=== PATIENT | male | born 1950 | race Caucasian/White ===

== ENCOUNTER 2017-02-23 11:48 | Inpatient (IN) ==
--- NOTE | 2017-02-23 10:42 | Discharge Summary ---
Date of Encounter: 02/24/17 Time of Encounter: 08:03 - Discharge Diagnosis (1) Rotator cuff tear arthropathy of right shoulder Priority: Primary Status: Acute (2) Obstructive sleep apnea Priority: Secondary Status: Chronic (3) Hypertension Priority: Secondary Status: Chronic Qualifiers: Hypertension type: unspecified secondary hypertension Qualified Code(s): I15.9 - Secondary hypertension, unspecified; I15 - Secondary hypertension (4) Coronary artery disease Priority: Secondary Status: Chronic Qualifiers: Coronary Disease-Associated Artery/Lesion type: unspecified vessel or lesion type [place] vs. transplanted heart: [place] heart Associated angina: angina presence unspecified Qualified Code(s): I25.10 - Atherosclerotic heart disease of [place] coronary artery without angina pectoris - Discharge Medications Home Medications: Aspirin 81 mg PO DAILY 11/24/16 [History] Atorvastatin [Lipitor] 40 mg PO HS 11/24/16 [History] Carvedilol 3.125 mg PO BID 11/24/16 [History] Clopidogrel [Plavix] 75 mg PO DAILY 11/24/16 [History] Fexofenadine HCl [Allergy Relief] 180 mg PO DAILY 11/24/16 [History] Folic Acid/Multivit-Min/Lutein [Centrum Silver Chewable Tablet] 1 each PO DAILY 11/24/16 [History] Hydrochlorothiazide 25 mg PO DAILY 11/24/16 [History] Isosorbide MONOnitrate (24 HR) [Imdur] 30 mg PO DAILY 11/24/16 [History] Levothyroxine [Synthroid] 88 mcg PO DAILY 11/24/16 [History] Potassium Chloride [Klor-Con 10] 10 meq PO DAILY 11/24/16 [History] OxyCODONE Immed Rel [Roxicodone 5 MG] 5 - 10 mg PO Q6HR PRN #30 tablet 02/23/17 [Rx] Allergies/Adverse Reactions: Allergies No Known Allergies Allergy (Verified 02/23/17 13:18) Primary care physician: Isaías Wu MD - Patient Status Disposition: Home, Self-Care Condition: Good Functional capacity at discharge: independent ambulation Overall status at discharge: patient is progressing back to baseline - Discharge Instructions Follow Up With: Isaías Wu MD [Primary Care Provider] - - Hospital Course Hospital course: Mr. Blanton is a 67 year old male The patient had an uneventful postoperative course. They received antibiotics and physical therapy and were discharged in stable condition. There will follow -up in the office in 2 weeks. - Time Spent with Patient Total time spent providing and/or coordinating discharge services:
[2017-02-23] MEDS ORDERED: *HR* Promethazine 25 MG/ML VIAL IVP PRN (12:17)
[2017-02-23] MEDS ORDERED: *HR* HYDROmorphone (PF) 1 MG/ML SYRINGE IVP PRN ×2 (12:17→15:15)
[2017-02-23] MEDS ORDERED: *HR* Labetalol 100 MG/20 ML MDV IVP PRN (12:17)
[2017-02-23] MEDS ORDERED: Famotidine 20 MG/2 ML VIAL IVP ONE (12:17)
--- NOTE | 2017-02-23 12:21 | Anesthesia Evaluation PreOp ---
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 Any Significant HX Other Medical History: Renal (Hx of Kidney Stones), Thyroid (maintained on Synthroid) Anesthesia History: No Prior Anesthetic Complications, Past Anesthesia (Stents, Hernia Repair, T&A, L-RCR 11/2016, Colonoscopy) Alcohol Use: none Drug use: none Medications and Allergies Aspirin 81 mg PO DAILY 11/24/16 [History] Atorvastatin [Lipitor] 40 mg PO HS 11/24/16 [History] Calcium Carbonate/Vitamin D3 [Calcium 500+D Tablet Chew] 1 each PO DAILY [History] Carvedilol 3.125 mg PO BID 11/24/16 [History] Clindamycin [Cleocin] 150 mg PO Q6HR #8 capsule 11/24/16 [Rx] Clopidogrel [Plavix] 75 mg PO DAILY 11/24/16 [History] Fexofenadine HCl [Allergy Relief] 180 mg PO DAILY 11/24/16 [History] Folic Acid/Multivit-Min/Lutein [Centrum Silver Chewable Tablet] 1 each PO DAILY 11/24/16 [History] Hydrochlorothiazide 25 mg PO DAILY 11/24/16 [History] Isosorbide MONOnitrate (24 HR) [Imdur] 30 mg PO DAILY 11/24/16 [History] Levothyroxine [Synthroid] 88 mcg PO DAILY 11/24/16 [History] Potassium Chloride [Klor-Con 10] 10 meq PO DAILY 11/24/16 [History] OxyCODONE Immed Rel [Roxicodone 5 MG] 5 - 10 mg PO Q6HR PRN #30 tablet 02/23/17 [Rx] Allergies No Known Allergies Allergy (Verified 11/24/16 12:50) - Meds/Allergy Pre-op Review Medications Reviewed: Yes Allergies Reviewed: Yes Beta Blockers on Current Med List: Yes (Carvedilol) If Beta Blockers taken, Date/Time (Last Dose taken): 02/23/2017 @ 0800 Anesthesia Results - Labs Laboratory Tests 02/11/17 02/11/17 02/11/17 07:44 07:44 07:44 WBC 7.0 Hgb 14.6 Hct 42.0 Plt Count 230 PT 12.2 H INR 1.1 APTT 32.7 Sodium 139 Potassium 3.7 Chloride 105 Carbon Dioxide 25 BUN 11 Creatinine 0.84 Est GFR (Non-Af Amer) > 60 Glucose 105 H Anesthesia Exam O2 Sat Height 1.75 m Height 1.75 m Weight 93.894 kg Weight 93.894 kg O2 Sat by Pulse Oximetry 98 Vital Signs Temp Pulse Resp BP Pulse Ox 97.7 F 65 18 143/90 98 02/23/17 12:17 02/23/17 12:17 02/23/17 12:17 02/23/17 12:17 02/23/17 12:17 Height: 5' 9 Weight: 207# BMI = 30.6 - HEENT Pupil (Motor): Pupils equal, EOMI Mallampati: II Teeth: Missing Denture Type: Upper: Partial, Lower: Partial Oral Opening: Greater than 3 - 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 LOC: Oriented 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 Silverio Gonzalez MD
--- NOTE | 2017-02-23 12:26 | History & Physical Report ---
Date of Encounter: 02/23/17 Time of Encounter: 12:26 24 Hour HP Update - Instructions Instructions: If the History and Physical is less than 30 days old and was completed prior to A.M. admission and or procedure and has NOT been updated on calendar day of procedure please complete this update prior to performing procedure. - Update Patient reports changes in Medical Condition: No Changes in examination, assessment, or condition: No Changes in Medication: No Preop tests/diagnostics Reviewed: Yes Surgery Remains Indicated: Yes Consent for Planned Operative Procedure(s) Verified: Yes - Pre-Operative Checklist Preoperative Checklist Indicated: No Prophylactic Antibiotic Ordered: Yes Is VTE Prophylaxis Indicated?: NO
[2017-02-23] MEDS ORDERED: Lidocaine -MPF 1% 2 ML VIAL ID ONE (12:56)
[2017-02-23] MEDS ORDERED: CeFAZolin Pre 2,000 MG/100 ML 2,000 MG/100 ML BAG IVPB ONE (12:56)
[2017-02-23] MEDS ORDERED: Ringers Solution, Lactated 1,000 ML IVC SCH (13:00)
[2017-02-23] MEDS ORDERED: *HR* Propofol 200 MG/20 ML VIAL IVP ONE (13:03)
[2017-02-23] MEDS ORDERED: *HR* FentaNYL (PF) 100 MCG/2 ML VIAL ONE (13:03)
[2017-02-23] MEDS ORDERED: *HR* Midazolam HCl 2 MG/2 ML VIAL ONE (13:03)
[2017-02-23] MEDS ORDERED: Bupivacaine/Clonidine Syringe 1 EACH SYRINGE ONE (13:06)
[2017-02-23] MEDS ORDERED: Tetracaine/PF 20 MG/2 ML AMPUL SPINA ONE (13:07)
--- NOTE | 2017-02-23 13:46 | Anesthesia Procedures ---
Date of Encounter: 02/23/17 Time of Encounter: 13:44 Procedures: Anesthesia - Nerve Block Procedure Date: 02/23/17 Time: 13:44 Allergies/Adv Reactions: [id number] Pre-op Diagnosis: OA rt Shoulder Surgical Procedure: RT Total Shoulder Checklist: Correct Patient Identifier Correct side: Right Blood Thinner: No Monitor Applied: EKG, BP, Pulse Oximetry Supplemental Oxygen via Nasal Cannula (L/min): 3 Sedation: Versed (mg): 2 Sedation: Fentanyl (mcg): 100 Indication: Post Op Analgesia (per Dr Reji Munoz) Pre-op Neuro Deficits: No Block Type: Supraclavicular Catheter placed: No Sterile Technique: Yes Ultrasound used: Yes Anatomy identified: Yes Visual spread of Local: Yes Neuro Stimulation: No Blood on Needle Aspiration: No Smooth Injection of Local: Yes Pain with Injection of Local: No Prep: Chlorhexadine Needle: 22 x 50 mm Stimuplex Local: 0.25% Bupivicaine w/Clonidine 20 mcg/cc, Tetracaine Volume (cc): 40 Number of Attempts: 1 Complications: None/effective block Vitals: 140/80, 76, 16 98%
[2017-02-23] MEDS ORDERED: Ondansetron 4 MG/2 ML VIAL ONE (13:49)
[2017-02-23] MEDS ORDERED: Lidocaine -MPF 2% 2 ML VIAL ONE (13:49)
[2017-02-23] MEDS ORDERED: Dexamethasone 4 MG/ML VIAL ONE (13:49)
--- NOTE | 2017-02-23 14:20 | Orthopedic Operative Note ---
Date of procedure: 02/23/17 Pre-op diagnosis: Right shoulder cuff tear arthropathy Post-op diagnosis: same Procedure: Procedure: Right Total Shoulder Replacment Reverse, biceps tenodesis Estimated blood loss: 100 cc Hardware:Arthrex large glenoid baseplate, 2 4.5 screws. 1 6.5 screw, 42 lateral glenosphere, 12 humeral stem, poly insert 6 Exam Under anesthesia: Full motion no instability Procedural Notes: Irreparable rotator cuff tear Operative procedure: The patient was brought to the operating room and placed on the operating room table. After general anesthesia was administered the operative shoulder was examined. Findings were noted. The patient was placed in the modified beachchair position. All pressure points were padded appropriately. And the head was stabilized in the neutral position. The operative extremity was prepped and draped in the sterile surgical fashion. The patient received IV antibiotics prior to skin incision. A standard deltopectoral approach was made to the operative shoulder. Incision was made to the skin and subcutaneous tissue,hemo stasis was obtained with Bovie cautery. Using careful blunt dissection the cephalic vein was identified and mobilized medially. The deltopectoral interval was developed and the clavipectoral fascia was incised. The subscap was released off the lesser tuberosity and tagged with #2 FiberWire suture. The humerus was dislocated patient noted to have irreparable tear supraspinatus tendon, and the humeral cut was made along the anatomic neck. Anterior and posterior Bankart retractors were placed to expose the glenoid. The glenoid guide was seated and the centering hole was made. It was reamed with the appropriate reamer. The large baseplate was seated and secured with (2) 4.5 screws and one 6.5 screw. The baseplate was irrigated and dried and the 42 lateral Glenosphere was seated and secured with the Beckett taper. The Beckett taper was tested and found to be secure the humerus was redislocated and prepared with the diaphyseal reamers, followed by a broaching process up to the appropriate size 12 in the patient's anatomic version. The metaphyseal reamer was then utilized. Trial reduction found the shoulder to be relocatable. Trial components were removed and drill holes were placed in the lesser tuberosity. They were filled with #5 FiberWire suture incorporating the biceps tendon. These sutures were used for a subscap repair and a biceps tenodesis. The appropriate 12 stem was impacted in place in the patient's anatomic version. Trial reduction found the shoulder to be relocatable and stable with the appropriate 6 Nika Trial component was removed and the real implant was seated and secured the shoulder was reduced. The shoulder had excellent motion and excellent stability and no evidence of dislocation. The deep tissue was irrigated with pulse irrigation. The subscap was repaired incorporating the biceps tendon for biceps tenodesis and a subscap repair. The deltopectoral interval was closed with a running #1 PDS suture, subcutaneous tissue was irrigated and closed with 0 PDS suture, the skin was closed with Dermabond. The patient was placed in a sterile dressing, abduction brace and extubated. The patient was then transferred to the recovery room in stable condition. Anesthesia: ALISTAIR Surgeon: Bentley Mendoza Condition: stable Disposition: PACU
[2017-02-23 15:00] LABS: Hematocrit 41.4 % (37.5-50.1); Hemoglobin 14.4 g/dL (12.9-16.9)
--- NOTE | 2017-02-23 15:04 | Anesthesia Evaluation Post Op ---
Date of Encounter: 02/23/17 Time of Encounter: 15:04 - Vital Signs Vital Signs: vss - Lungs Lungs: Clear Ascult./Percussion - Airway Airway: Non-obstructed - Cardiovascular Baseline Rhythm - Mental Status Mental Status: Asleep with brisk response to light stimulation - Pain Pain Scale used: Maty (Faces) - Nausea Vomiting Nausea Vomiting: Not Present - Hydration Hydration: Ice chips - Discharge PostOp Status: Transfer Patient to floor
[2017-02-23] MEDS ORDERED: Naloxone 0.4 MG/ML INJ IVP PRN (15:15)
[2017-02-23] MEDS ORDERED: MOM Conc 10 ML UD.LIQ PO PRN (15:15)
[2017-02-23] MEDS ORDERED: Sennosides 8.6 MG TABLET PO PRN (15:15)
[2017-02-23] MEDS ORDERED: Temazepam 15 MG CAPSULE PO PRN (15:15)
[2017-02-23] MEDS ORDERED: *HR* OxyCODONE Immed Rel 5 MG TABLET PO PRN (15:15)
[2017-02-23] MEDS ORDERED: Acetaminophen 325 MG TABLET PO PRN (15:15)
[2017-02-23] MEDS ORDERED: Ondansetron 4 MG/2 ML VIAL IVP PRN (15:15)
[2017-02-23] MEDS: Ringers Solution, Lactated 1,000 ML IVC SCH (16:09)
[2017-02-23] MEDS: *HR* OxyCODONE Immed Rel 5 MG TABLET PO PRN (16:09)
[2017-02-23] MEDS: *HR* Enoxaparin 30 MG/0.3 ML SYRINGE SQ SCH (16:46)
[2017-02-23] MEDS ORDERED: *HR* Enoxaparin 30 MG/0.3 ML SYRINGE SQ SCH (18:00)
[2017-02-23] MEDS: ceFAZolin 2,000 MG in D5% in Water 100 ML IVPB SCH (20:25)
[2017-02-24] MEDS: *HR* OxyCODONE Immed Rel 5 MG TABLET PO PRN ×2 (03:50→10:48)
[2017-02-24] MEDS: Ringers Solution, Lactated 1,000 ML IVC SCH (04:42)
[2017-02-24 05:00] LABS: Hematocrit 37.6 % (37.5-50.1)
[2017-02-24] MEDS: ceFAZolin 2,000 MG in D5% in Water 100 ML IVPB SCH (05:35)
[2017-02-24] MEDS: *HR* Enoxaparin 30 MG/0.3 ML SYRINGE SQ SCH (05:36)
[2017-02-24 07:11] VITALS: BP 127/77
--- NOTE | 2017-02-24 08:04 | Orthopedics Progress Note ---
Date of Encounter: 02/24/17 Time of Encounter: 08:04 - Assessment and Plan (1) Rotator cuff tear arthropathy of right shoulder Current Visit: Yes Status: Acute (2) Obstructive sleep apnea Current Visit: Yes Status: Chronic (3) Hypertension Current Visit: Yes Status: Chronic Qualifiers: Hypertension type: unspecified secondary hypertension Qualified Code(s): I15.9 - Secondary hypertension, unspecified; I15 - Secondary hypertension (4) Coronary artery disease Current Visit: Yes Status: Chronic Qualifiers: Coronary Disease-Associated Artery/Lesion type: unspecified vessel or lesion type [place] vs. transplanted heart: [place] heart Associated angina: angina presence unspecified Qualified Code(s): I25.10 - Atherosclerotic heart disease of [place] coronary artery without angina pectoris Subjective Interval history: Patient was seen this morning doing well without complaints. Afebrile vital signs stable. Operative extremity: Neurovascularly intact Dressing clean dry and intact Calves nontender Assessment and plan: Continue with postoperative care Discharged today Objective Vital signs: Vital Signs Temp Pulse Resp BP Pulse Ox 02/24/17 07:06 97.5 F L 62 14 127/77 95 02/24/17 03:51 97.3 F L 65 16 130/80 95 02/23/17 23:57 97.5 F L 65 16 136/85 93 02/23/17 19:28 97.4 F L 67 16 120/67 93 02/23/17 18:44 97.4 F L 65 16 145/79 95 02/23/17 17:40 59 14 128/81 96 02/23/17 16:50 97.6 F 56 12 125/79 96 02/23/17 16:06 97.8 F 56 16 125/77 95 02/23/17 15:30 97.7 F 53 14 123/77 97 02/23/17 15:17 96 02/23/17 15:05 97.3 F L 53 16 127/77 96 02/23/17 14:55 97.1 F L 54 16 126/79 95 02/23/17 14:45 56 16 131/81 96 02/23/17 14:35 55 16 128/81 97 02/23/17 14:25 97.8 F 68 16 144/84 100 02/23/17 13:22 69 16 148/96 99 02/23/17 13:15 65 16 155/102 98 02/23/17 12:17 97.7 F 65 18 143/90 98 Intake and Output 02/23/17 02/24/17 02/24/17 23:59 07:59 15:59 Intake Total 425 / 425 250 / 250 Balance 425 / 425 250 / 250 Intake: IV Fluids 100 / 100 100 / 100 Ancef 2,000 MG In 100 / 100 100 / 100 Dextrose 5% 100 ML @ 200 mls/hr IVPB Q8H MARIE Rx#: [id number] Oral 325 / 325 150 / 150 Other: # Voids 1 1 - Labs CBC & BMP: 02/24/17 04:04 - VTE Documentation of Mechanical Device: Intermittent pneumatic compression device Consult Discharge Plan - Plan Referrals: Isaías Wu MD [Primary Care Provider] -
[2017-02-24] MEDS ORDERED: Multivit/Ca/Min/Fe/FA 1 TAB TABLET PO SCH (09:00)
[2017-02-24] MEDS ORDERED: hydroCHLOROthiazide 25 MG TABLET PO SCH (09:00)
[2017-02-24] MEDS ORDERED: Aspirin 81 MG TAB.CHEW PO SCH (09:00)
[2017-02-24] MEDS ORDERED: Isosorbide MONOnitrate (24 HR) 30 MG TAB.ER.24H PO SCH (09:00)
[2017-02-24] MEDS ORDERED: Loratadine 10 MG TABLET PO SCH (09:00)
== END 2017-02-24 11:10 | disposition home or self-care (01) | DRG 483 ==
LOC: SAMDAY 11:48 → 1NENUOBS 15:16
PROVIDERS: ADMIT Orthopaedic Surgery; ATTEND Orthopaedic Surgery